=== PATIENT | male | born 1975 | race Caucasian/White ===

== ENCOUNTER 2016-10-14 08:33 | Inpatient (IN) | payer OTHER ==
[2016-10-14 09:26] VITALS: BMI 27.3
--- NOTE | 2016-10-14 13:17 | HP ---
CIWA Score - CIWA Score Nausea/Vomitin-Mild Nausea/No Vomiting Muscle Tremors: 4-Moderate,w/Arms Extend Anxiety: 3 Agitation: 4-Moderately Restless Paroxysmal Sweats: 3 Orientation: 0-Oriented Tacttile Disturbances: 0-None Auditory Disturbances: 0-None Visual Disturbances: 0-None Headache: 0-None Present CIWA-Ar Total Score: 15 Admission ROS BHS - HPI Chief Complaint: I am here to detox. Allergies/Adverse Reactions: Allergies Allergy/AdvReac Type Severity Reaction Status Date / Time clarithromycin [From Biaxin] AdvReac Severe Verified 03/20/12 23:00 History of Present Illness: pt is a 40yr old male with a history of alcohol and cocaine dependence seeking detox for treatment. Exam Limitations: No Limitations - Ebola screening Have you traveled outside of the country in the last 21 days: No Have you had contact with anyone from an Ebola affected area: No Have you been sick,other than usual withdrawal symptoms: No Do you have a fever: No - Review of Systems Constitutional: Chills, Diaphoresis, Loss of Appetite, Night Sweats EENT: reports: No Symptoms Reported Respiratory: reports: No Symptoms reported Cardiac: reports: No Symptoms Reported, Syncope GI: reports: Diarrhea, Nausea, Poor Fluid Intake, Vomiting, Indigestion : reports: Burning Musculoskeletal: reports: No Symptoms Reported Integumentary: reports: No Symptoms Reported Neuro: reports: Tingling, Tremors Endocrine: reports: Excessive Sweating, Flushing, Intolerance to Cold, Intolerance to Heat Hematology: reports: No Symptoms Reported Psychiatric: reports: Judgement Intact, Mood/Affect Appropiate, Orientated x3, Agitated, Anxious Other Systems: Reviewed and Negative Patient History - Patient Medical History Hx Anemia: No Hx Asthma: No Hx Chronic Obstructive Pulmonary Disease (COPD): No Hx Cancer: No Hx Cardiac Disorders: No Hx Congestive Heart Failure: No Hx Hypertension: No Hx Hypercholesterolemia: Yes (on med) Hx Pacemaker: No HX Cerebrovascular Accident: No Hx Seizures: No Hx Dementia: No Hx Diabetes: No Hx Gastrointestinal Disorders: Yes Hx Liver Disease: No Hx Genitourinary Disorders: No Hx Sexually Transmitted Disorders: No Hx Renal Disease (ESRD): No Hx Thyroid Disease: No Hx Human Immunodeficiency Virus (HIV): No Hx Hepatitis C: No Hx Depression: No Hx Suicide Attempt: No (denies) Hx Bipolar Disorder: No Hx Schizophrenia: No Other Medical History: anxiety/add - Patient Surgical History Past Surgical History: No Hx Neurologic Surgery: No Hx Cataract Extraction: No Hx Cardiac Surgery: No Hx Lung Surgery: No Hx Breast Surgery: No Hx Breast Biopsy: No Hx Abdominal Surgery: No Hx Appendectomy: No Hx Cholecystectomy: No Hx Genitourinary Surgery: No Hx Section: No Hx Orthopedic Surgery: No (torn ACL lt Knee(age 20)) Anesthesia Reaction: No - PPD History Previous Implant?: Yes Documented Results: Negative w/o proof Implanted On Prior R Admission?: Yes PPD to be Administered?: Yes - Reproductive History Patient is a Female of Child Bearing Age (11 -55 yrs old): No - Smoking Cessation Smoking history: Current every day smoker Have you smoked in the past 12 months: Yes Aproximately how many cigarettes per day: 20 Hx Chewing Tobacco Use: No Initiated information on smoking cessation: Yes 'Breaking Loose' booklet given: 10/14/16 - Substance & Tx. History Hx Alcohol Use: Yes Hx Substance Use: Yes Substance Use Type: Alcohol Hx Substance Use Treatment: Yes - Substances Abused Alcohol Route: Smoking Frequency: Daily Amount used: [place](1 pint)/guiness(2-3 bottles) Age of first use: 13 Date of Last Use: 10/14/16 Cocaine Route: Smoking Frequency: Daily Amount used: $50-300 Age of first use: 18 Date of Last Use: 10/13/16 Family Disease History - Family Disease History Family Disease History: CA: Father (skin CA) Admission Physical Exam BHS - Vital Signs Vital Signs: Vital Signs - 24 hr 10/14/16 09:24 Temperature 96.9 F L Pulse Rate 66 Respiratory 18 Rate Blood Pressure 107/61 - Physical General Appearance: Yes: Appropriately Dressed, Moderate Distress, Tremorous, Irritable, Sweating, Anxious HEENTM: Yes: Normal Voice, Hearing Decreased Respiratory: Yes: Lungs Clear, Normal Breath Sounds, No Respiratory Distress Neck: Yes: No masses,lesions,Nodules Breast: Yes: Within Normal Limits Cardiology: Yes: Regular Rhythm, Regular Rate, S1, S2 Abdominal: Yes: Normal Bowel Sounds, Non Tender, Soft Genitourinary: Yes: Within Normal Limits Back: Yes: Normal Inspection Musculoskeletal: Yes: full range of Motion Extremities: Yes: Normal Capillary Refill, Normal Inspection Neurological: Yes: Fully Oriented, Alert, Normal Response Integumentary: Yes: Normal Color, Diaphoresis Lymphatic: Yes: Within Normal Limits - Diagnostic (1) Alcohol dependence with uncomplicated withdrawal Current Visit: Yes Status: Chronic (2) Cocaine dependence Current Visit: Yes Status: Chronic (3) hypercholesterolemia Current Visit: Yes Status: Chronic Cleared for Admission [facility] - Detox or Rehab [facility] Level of Care: Medically Managed Detox Regimen/Protocol: Librium [facility] Breath Alcohol Content Breath Alcohol Content: 0.047 Urine Drug Screen - Results Drug Screen Negative: No Urine Drug Screen Results: TAMI-Cocaine
[2016-10-14] MEDS ORDERED: MAGNESIUM CITRATE 300 ML BOTTLE PO PRN (13:24)
[2016-10-14] MEDS ORDERED: LOPERAMIDE HCL 2 MG CAPSULE PO PRN (13:24)
[2016-10-14] MEDS ORDERED: chlordiazePOXIDE HCL 25 MG CAPSULE PO PRN (13:24)
[2016-10-14] MEDS ORDERED: NICOTINE POLACRILEX 4 MG GUM BC PRN (13:24)
[2016-10-14] MEDS ORDERED: IBUPROFEN 400 MG TABLET (FP) PO PRN (13:24)
[2016-10-14] MEDS ORDERED: guaiFENesin/D-METHORPHAN HB 10 ML UNIT-DOSE CUPS PO PRN (13:24)
[2016-10-14] MEDS ORDERED: P-EPHED 60MG/TRIPROLIDI 2.5MG TABLET PO PRN (13:24)
[2016-10-14] MEDS ORDERED: MAGNESIUM HYDROX 2400MG/30ML ORAL SUSPENSION 30 ML CUP PO PRN (13:24)
[2016-10-14] MEDS ORDERED: MENTHOL/PHENOL 1 EACH UD MM PRN (13:24)
[2016-10-14] MEDS ORDERED: hydrOXYzine PAMOATE 50 MG CAPSULE (FP) PO PRN (13:24)
[2016-10-14] MEDS ORDERED: MAG HYDROX/AL HYDROX/SIMETH 30 ML UNIT-DOSE CUP PO PRN (13:24)
[2016-10-14] MEDS ORDERED: diphenhydrAMINE HCL 50 MG CAPSULE PO PRN (13:24)
[2016-10-14] MEDS ORDERED: ACETAMINOPHEN 325 MG TABLET (FP) PO PRN (13:24)
[2016-10-14] MEDS ORDERED: chlordiazePOXIDE HCL 25 MG CAPSULE PO ONE (14:15)
[2016-10-14] MEDS: chlordiazePOXIDE HCL 25 MG CAPSULE PO SCH ×2 (17:40→22:12)
[2016-10-14 18:19] LABS: URINE APPEARANCE CLEAR; URINE BILIRUBIN NEGATIVE (NEGATIVE); URINE BLOOD NEGATIVE (NEGATIVE); URINE COLOR YELLOW; URINE GLUCOSE (UA) NEGATIVE (NEGATIVE); URINE KETONE NEGATIVE (NEGATIVE); URINE LEUK ESTERASE NEGATIVE (NEGATIVE); URINE NITRITE NEGATIVE (NEGATIVE); URINE PROTEIN NEGATIVE (NEGATIVE); URINE UROBILINOGEN NEGATIVE E.U./dl (0.2-1.0)
[2016-10-14] MEDS: ATORVASTATIN CA 20 MG TABLET (FP) PO SCH (22:12)
[2016-10-14] MEDS: THIAMINE HCL 100 MG TABLET (FP) PO SCH (22:12)
[2016-10-15] MEDS: chlordiazePOXIDE HCL 25 MG CAPSULE PO SCH ×4 (05:57→22:20)
--- NOTE | 2016-10-15 09:52 | CONSULT ---
[facility] Psychiatric Consult - Data Date of interview: 10/15/16 Admission source: [facility] Identifying data: This is 40 years old male with history of ADHS, Anxiety, with no history of psychiatric admissions. intoxiocated with: Alcohol, Cocaine and Nicotine Substance Abuse History: Smoking history: Current every day smoker. Have you smoked in the past 12 months: Yes. Aproximately how many cigarettes per day: 20. Hx Chewing Tobacco Use: No. Initiated information on smoking cessation: Yes. 'Breaking Loose' booklet given: 10/14/16. - Substance & Tx. History. Hx Alcohol Use: Yes. Hx Substance Use: Yes. Substance Use Type: Alcohol. Hx Substance Use Treatment: Yes. - Substances Abused. Alcohol. Route: Smoking. Frequency: Daily. Amount used: [place](1 pint)/guiness(2-3 bottles). Age of first use: 13. Date of Last Use: 10/14/16. Cocaine. Route: Smoking. Frequency: Daily. Amount used: $50-300. Age of first use: 18. Date of Last Use: 10/13/16 Medical History: Hypercholesterolemia Psychiatric History: Patient reprots history of ADHD, reports taking prior to admission: Zoloft 100mg poqd. Strattera 40mg po bid Physical/Sexual Abuse/Trauma History: Denies Additional Comment: Zoloft 100mg poqd. Strattera 40mg po bid Mental Status Exam - Mental Status Exam Alert and Oriented to: Person Cognitive Function: Fair Patient Appearance: Unkempt Mood: Nervous, Anxious Affect: Labile Patient Behavior: Talkative, Agitated Speech Pattern: Pressured Voice Loudness: Mildly Loud Thought Process: Circumstantial, Goal Oriented Thought Disorder: Being Controlled Hallucinations: Denies Suicidal Ideation: Denies Homicidal Ideation: Denies Insight/Judgement: Fair Sleep: Difficulty falling asleep Appetite: Fair Muscle strength/Tone: Moderate Hypertonicity Gait/Station: Normal Additional Comments: Zoloft 100mg poqd. Strattera 40mg po bid Psychiatric Findings - Problem List ([place] 1, 2,3) (1) Alcohol dependence with uncomplicated withdrawal Current Visit: Yes Status: Chronic (2) Cocaine dependence Current Visit: Yes Status: Chronic (3) anxiety and depression Current Visit: No Status: Chronic (4) ADHD (attention deficit hyperactivity disorder) Current Visit: Yes Status: Acute (5) Drug-induced mood disorder Current Visit: Yes Status: Acute - Initial Treatment Plan Initial Treatment Plan: Zoloft 100mg poqd. Strattera 40mg po bid
[2016-10-15 10:01] LABS: MCH 31.2 pg (25.7-33.7); MCHC 33.6 g/dl (32.0-35.9); MEAN CELL VOLUME 92.9 fl (80-96); MEAN PLT VOLUME 9.9 fl (7.5-11.1); PLATELET COUNT 221 K/MM3 (134-434); RDW 13.4 % (11.9-15.9); WHITE BLOOD COUNT 6.2 K/mm3 (4.0-10.0)
[2016-10-15] MEDS: NICOTINE 21 MG/24 HOURS TOPICAL PATCH TD SCH (10:15)
[2016-10-15] MEDS: PRENATAL VITAMINS W/ FOLIC ACID TABLET (FP) PO SCH (10:15)
[2016-10-15] MEDS: PANTOPRAZOLE 40 MG TABLET (FP) PO SCH (10:15)
[2016-10-15] MEDS: SERTRALINE HCL 50 MG TABLET (FP) PO SCH (10:17)
--- NOTE | 2016-10-15 10:23 | PN ---
[facility] CIWA - CIWA Score Nausea/Vomitin-No Nausea/No Vomiting Muscle Tremors: 3 Anxiety: 5 Agitation: 5 Paroxysmal Sweats: 1-Minimal Palms Moist Orientation: 0-Oriented Tacttile Disturbances: 3-Moderate Itch/Numb/Burn Auditory Disturbances: 0-None Visual Disturbances: 0-None Headache: 0-None Present CIWA-Ar Total Score: 17 BHS Progress Note (SOAP) Subjective: ANXIETY,AGITATIONS,IRRITABILITY, SWEATS. PT WAS SPOKEN TO THIS MORNING BY [employer] AND COUNSELOR, RAFIQ TO REITERATE UNIT RULES/REGULATIONS. PT'S BEHAVIOR POINTS TO WANTING WHAT HE WANTS WHENEVER HE WANTS IT STATING"THAT'S HOW I DO IT IN THE STREET, I SHAVE EVERYDAY"...PACING ON HALLWAY YELLING AND THREATENING TO LEAVE. Objective: 10/15/16 10:18 Vital Signs Temperature 96.5 F L 10/15/16 09:24 Pulse Rate 64 10/15/16 09:24 Respiratory Rate 18 10/15/16 09:24 Blood Pressure 120/66 10/15/16 09:24 O2 Sat by Pulse Oximetry (%) Laboratory Last Values WBC 6.2 K/mm3 (4.0-10.0) 10/15/16 06:00 RBC 4.87 M/mm3 (4.00-5.60) 10/15/16 06:00 Hgb 15.2 GM/dL (11.7-16.9) 10/15/16 06:00 Hct 45.3 % (35.4-49) 10/15/16 06:00 MCV 92.9 fl (80-96) 10/15/16 06:00 MCHC 33.6 g/dl (32.0-35.9) 10/15/16 06:00 RDW 13.4 % (11.9-15.9) 10/15/16 06:00 Plt Count 221 K/MM3 (134-434) 10/15/16 06:00 MPV 9.9 fl (7.5-11.1) 10/15/16 06:00 Urine Color Yellow 10/14/16 14:00 Urine Appearance Clear 10/14/16 14:00 Urine pH 5.0 (5.0-8.0) 10/14/16 14:00 Ur Specific [place] 1.020 (1.005-1.025) 10/14/16 14:00 Urine Protein Negative (NEGATIVE) 10/14/16 14:00 Urine Glucose (UA) Negative (NEGATIVE) 10/14/16 14:00 Urine Ketones Negative (NEGATIVE) 10/14/16 14:00 Urine Blood Negative (NEGATIVE) 10/14/16 14:00 Urine Nitrite Negative (NEGATIVE) 10/14/16 14:00 Urine Bilirubin Negative (NEGATIVE) 10/14/16 14:00 Urine Urobilinogen Negative E.U./dl (0.2-1.0) 10/14/16 14:00 Ur Leukocyte Esterase Negative (NEGATIVE) 10/14/16 14:00 Assessment: 10/15/16 10:18 WITHDRAWAL SX Plan: CONTINUE DETOX
[2016-10-15 10:29] LABS: ALBUMIN 4.1 g/dl (3.4-5.0); ALK PHOS 94 U/L (45-117); ANION GAP 12 (8-16); BILIRUBIN,TOTAL 0.3 mg/dL (0.2-1.0); CALCIUM 9.2 mg/dL (8.5-10.1); CO2 23 mmol/L (21-32); COCKROFT - GAULT 116.54; GLUCOSE,RANDOM 94 mg/dL (74-106); SGOT/AST 34 U/L (15-37); SGPT/ALT 34 U/L (12-78); TOT PROT 7.1 g/dl (6.4-8.2)
[2016-10-15] MEDS: ATOMOXETINE HCL 40 MG CAPSULE PO SCH ×2 (11:04→13:56)
--- NOTE | 2016-10-15 16:38 | EKG ---
Test Reason : Blood Pressure : / mmHG Vent. Rate : 057 BPM Atrial Rate : 057 BPM P-R Int : 168 ms QRS Dur : 092 ms QT Int : 422 ms P-R-T Axes : -13 017 -07 degrees QTc Int : [address] ELEVATION, CONSIDER EARLY REPOLARIZATION, PERICARDITIS, OR INJURY ABNORMAL ECG NO PREVIOUS ECGS AVAILABLE Confirmed by KATHY GAXIOLA MD ([id number]) on 10/15/2016 4:37:55 PM Referred By: Fredy Wooten Confirmed By:KATHY GAXIOLA MD
[2016-10-15] MEDS: THIAMINE HCL 100 MG TABLET (FP) PO SCH (22:20)
[2016-10-15] MEDS: ATORVASTATIN CA 20 MG TABLET (FP) PO SCH (22:20)
[2016-10-16] MEDS: chlordiazePOXIDE HCL 25 MG CAPSULE PO SCH ×2 (06:06→10:39)
[2016-10-16] MEDS: NICOTINE 21 MG/24 HOURS TOPICAL PATCH TD SCH (10:39)
[2016-10-16] MEDS: PANTOPRAZOLE 40 MG TABLET (FP) PO SCH (10:39)
[2016-10-16] MEDS: ATOMOXETINE HCL 40 MG CAPSULE PO SCH (10:39)
[2016-10-16] MEDS: SERTRALINE HCL 50 MG TABLET (FP) PO SCH (10:39)
[2016-10-16] MEDS: PRENATAL VITAMINS W/ FOLIC ACID TABLET (FP) PO SCH (10:39)
[2016-10-16 10:50] VITALS: BP 106/65; PULSE 65; TEMP 98.4
--- NOTE | 2016-10-16 10:59 | PN ---
[facility] CIWA - CIWA Score Nausea/Vomitin-No Nausea/No Vomiting Muscle Tremors: 4-Moderate,w/Arms Extend Anxiety: 4-Mod. Anxious/Guarded Agitation: 4-Moderately Restless Paroxysmal Sweats: 1-Minimal Palms Moist Orientation: 0-Oriented Tacttile Disturbances: 3-Moderate Itch/Numb/Burn Auditory Disturbances: 0-None Visual Disturbances: 0-None Headache: 0-None Present CIWA-Ar Total Score: 16 BHS Progress Note (SOAP) Subjective: LESS =IRRITABLE TODAY BUT STILL EXHIBITS SOME ANXIETY. DETOX PROCEEDING SCHEDULED. Objective: 10/16/16 10:58 Vital Signs Temperature 98.4 F 10/16/16 10:48 Pulse Rate 65 10/16/16 10:48 Respiratory Rate 20 10/16/16 10:48 Blood Pressure 106/65 10/16/16 10:48 O2 Sat by Pulse Oximetry (%) Laboratory Last Values WBC 6.2 K/mm3 (4.0-10.0) 10/15/16 06:00 RBC 4.87 M/mm3 (4.00-5.60) 10/15/16 06:00 Hgb 15.2 GM/dL (11.7-16.9) 10/15/16 06:00 Hct 45.3 % (35.4-49) 10/15/16 06:00 MCV 92.9 fl (80-96) 10/15/16 06:00 MCHC 33.6 g/dl (32.0-35.9) 10/15/16 06:00 RDW 13.4 % (11.9-15.9) 10/15/16 06:00 Plt Count 221 K/MM3 (134-434) 10/15/16 06:00 MPV 9.9 fl (7.5-11.1) 10/15/16 06:00 Sodium 142 mmol/L (136-145) 10/15/16 06:00 Potassium 3.9 mmol/L (3.5-5.1) 10/15/16 06:00 Chloride 107 mmol/L (98-107) 10/15/16 06:00 Carbon Dioxide 23 mmol/L (21-32) 10/15/16 06:00 Anion Gap 12 (8-16) 10/15/16 06:00 BUN 24 mg/dL (7-18) H 10/15/16 06:00 Creatinine 1.0 mg/dL (0.7-1.3) 10/15/16 06:00 Creat Clearance w eGFR > 60 (>60) 10/15/16 06:00 Random Glucose 94 mg/dL (74-106) 10/15/16 06:00 Calcium 9.2 mg/dL (8.5-10.1) 10/15/16 06:00 Total Bilirubin 0.3 mg/dL (0.2-1.0) 10/15/16 06:00 AST 34 U/L (15-37) 10/15/16 06:00 ALT 34 U/L (12-78) D 10/15/16 06:00 Alkaline Phosphatase 94 U/L (45-117) D 10/15/16 06:00 Total Protein 7.1 g/dl (6.4-8.2) 10/15/16 06:00 Albumin 4.1 g/dl (3.4-5.0) 10/15/16 06:00 Urine Color Yellow 10/14/16 14:00 Urine Appearance Clear 10/14/16 14:00 Urine pH 5.0 (5.0-8.0) 10/14/16 14:00 Ur Specific [place] 1.020 (1.005-1.025) 10/14/16 14:00 Urine Protein Negative (NEGATIVE) 10/14/16 14:00 Urine Glucose (UA) Negative (NEGATIVE) 10/14/16 14:00 Urine Ketones Negative (NEGATIVE) 10/14/16 14:00 Urine Blood Negative (NEGATIVE) 10/14/16 14:00 Urine Nitrite Negative (NEGATIVE) 10/14/16 14:00 Urine Bilirubin Negative (NEGATIVE) 10/14/16 14:00 Urine Urobilinogen Negative E.U./dl (0.2-1.0) 10/14/16 14:00 Ur Leukocyte Esterase Negative (NEGATIVE) 10/14/16 14:00 RPR Titer Nonreactive (NONREACTIVE) 10/15/16 06:00 Assessment: 10/16/16 10:58 WITHDRAWAL SX Plan: CONTINUE DETOX
--- NOTE | 2016-10-16 15:19 | DS ---
[facility] Detox Discharge Summary Admission Date: 10/14/16 Discharge Date: 10/16/16 - History Present History: Alcohol Dependence, Cocaine Dependence Additional Comments: PT DECLINED TO CONTINUE WITH DETOX DESPITE COUNSELLING BY [facility]. ALERT O X 3. NAD. Pertinent Past History: ADHD MOOD DISORDER - Physical Exam Results Vital Signs: Vital Signs Temperature 98.4 F 10/16/16 10:48 Pulse Rate 65 10/16/16 10:48 Respiratory Rate 20 10/16/16 10:48 Blood Pressure 106/65 10/16/16 10:48 O2 Sat by Pulse Oximetry (%) Pertinent Admission Physical Exam Findings: WITHDRAWAL SX Laboratory Last Values WBC 6.2 K/mm3 (4.0-10.0) 10/15/16 06:00 RBC 4.87 M/mm3 (4.00-5.60) 10/15/16 06:00 Hgb 15.2 GM/dL (11.7-16.9) 10/15/16 06:00 Hct 45.3 % (35.4-49) 10/15/16 06:00 MCV 92.9 fl (80-96) 10/15/16 06:00 MCHC 33.6 g/dl (32.0-35.9) 10/15/16 06:00 RDW 13.4 % (11.9-15.9) 10/15/16 06:00 Plt Count 221 K/MM3 (134-434) 10/15/16 06:00 MPV 9.9 fl (7.5-11.1) 10/15/16 06:00 Sodium 142 mmol/L (136-145) 10/15/16 06:00 Potassium 3.9 mmol/L (3.5-5.1) 10/15/16 06:00 Chloride 107 mmol/L (98-107) 10/15/16 06:00 Carbon Dioxide 23 mmol/L (21-32) 10/15/16 06:00 Anion Gap 12 (8-16) 10/15/16 06:00 BUN 24 mg/dL (7-18) H 10/15/16 06:00 Creatinine 1.0 mg/dL (0.7-1.3) 10/15/16 06:00 Creat Clearance w eGFR > 60 (>60) 10/15/16 06:00 Random Glucose 94 mg/dL (74-106) 10/15/16 06:00 Calcium 9.2 mg/dL (8.5-10.1) 10/15/16 06:00 Total Bilirubin 0.3 mg/dL (0.2-1.0) 10/15/16 06:00 AST 34 U/L (15-37) 10/15/16 06:00 ALT 34 U/L (12-78) D 10/15/16 06:00 Alkaline Phosphatase 94 U/L (45-117) D 10/15/16 06:00 Total Protein 7.1 g/dl (6.4-8.2) 10/15/16 06:00 Albumin 4.1 g/dl (3.4-5.0) 10/15/16 06:00 Urine Color Yellow 10/14/16 14:00 Urine Appearance Clear 10/14/16 14:00 Urine pH 5.0 (5.0-8.0) 10/14/16 14:00 Ur Specific [place] 1.020 (1.005-1.025) 10/14/16 14:00 Urine Protein Negative (NEGATIVE) 10/14/16 14:00 Urine Glucose (UA) Negative (NEGATIVE) 10/14/16 14:00 Urine Ketones Negative (NEGATIVE) 10/14/16 14:00 Urine Blood Negative (NEGATIVE) 10/14/16 14:00 Urine Nitrite Negative (NEGATIVE) 10/14/16 14:00 Urine Bilirubin Negative (NEGATIVE) 10/14/16 14:00 Urine Urobilinogen Negative E.U./dl (0.2-1.0) 10/14/16 14:00 Ur Leukocyte Esterase Negative (NEGATIVE) 10/14/16 14:00 RPR Titer Nonreactive (NONREACTIVE) 10/15/16 06:00 - Treatment Hospital Course: Discharged Condition Good - Medication Discharge Medications: Ambulatory Orders Omeprazole [Prilosec (RX)] 40 mg PO DAILY 03/20/12 Sertraline HCl [Zoloft] 100 mg PO DAILY 03/20/12 Simvastatin [Zocor -] 20 mg PO HS 03/20/12 Atomoxetine HCl [Strattera -] 40 mg PO BID 10/14/16 Atomoxetine HCl [Strattera -] 40 mg PO BID@1000,1400 #60 cap 10/15/16 Sertraline HCl [Zoloft -] 100 mg PO DAILY #30 tablet 10/15/16 - Diagnosis (1) ADHD (attention deficit hyperactivity disorder) Status: Acute (2) Drug-induced mood disorder Status: Acute (3) Alcohol dependence with uncomplicated withdrawal Status: Acute (4) hypercholesterolemia Status: Chronic - AMA Did Patient Leave Against Medical Advice: Yes (AMA)
[2016-10-16] MEDS ORDERED: chlordiazePOXIDE 5 MG CAPSULE PO SCH (17:00)
[2016-10-17] MEDS ORDERED: chlordiazePOXIDE HCL 10 MG CAPSULE PO SCH (17:00)
== END 2016-10-16 13:17 | disposition left against medical advice (07) | DRG 770 ==
LOC: YASAS 08:33 → Y3N 11:35
PROVIDERS: ADMIT Internal Medicine; ATTEND Internal Medicine
PROC: HZ2ZZZZ Detoxification Services for Substance Abuse Treatment (ICD-10-PCS; principal; 2016-10-16)
DX: F10.230 Alcohol dependence with withdrawal, uncomplicated (principal); F19.24 Other psychoactive substance dependence with psychoactive substance-induced mood disorder; F90.9 Attention-deficit hyperactivity disorder, unspecified type; F41.8 Other specified anxiety disorders; E78.00 Pure hypercholesterolemia, unspecified
CPT/HCPCS: 36415; 80053; 81003; 85027; 86593; 93005; 93010